=== PATIENT | female | born 1985 | race African-American/Black ===

== ENCOUNTER 2020-07-12 21:27 | Emergency (ER) | payer BC, OTHER ==
[2020-07-12 21:38] VITALS: BP 156/107; PULSE 96; TEMP 98.9; BMI 33.3
[2020-07-13] MEDS ORDERED: LABETALOL HCL 100 MG TABLET (FP) PO ONE (00:01)
[2020-07-13] MEDS ORDERED: LABETALOL HCL 100 MG TABLET (FP) ONE (00:10)
[2020-07-13 14:20] LABS: EPI CELLS >36 /uL (0-25.1); HYALINE CASTS 1 /uL (0-3.1); PH,URINE 6.5 (5.0-8.0); URINE APPEARANCE CLOUDY; URINE BACTERIA 1445 /uL (0-1359); URINE BILIRUBIN NEGATIVE (NEGATIVE); URINE COLOR YELLOW; URINE GLUCOSE (UA) NEGATIVE (NEGATIVE); URINE KETONE NEGATIVE (NEGATIVE); URINE LEUK ESTERASE 1+ (NEGATIVE); URINE NITRITE NEGATIVE (NEGATIVE); URINE PROTEIN 1+ (NEGATIVE); URINE RBC 15 /uL (0-23.9); URINE UROBILINOGEN 0.2 mg/dL (0.2-1.0); URINE WBC 149 /uL (0-25.8)
== END 2020-07-13 00:20 | disposition home or self-care (01) ==
LOC: JER 21:27
DX: R03.0 Elevated blood-pressure reading, without diagnosis of hypertension (principal)
CPT/HCPCS: 81003; 99283-25

== ENCOUNTER 2022-09-24 11:42 | Emergency (ER) | payer BC ==
[2022-09-24 11:57] VITALS: RESP 16; TEMP 99.2; BMI 31.5
[2022-09-24] MEDS ORDERED: LABETALOL HCL 100 MG TABLET (FP) PO ONE ×2 (12:42→13:41)
[2022-09-24] MEDS ORDERED: LABETALOL HCL 100 MG TABLET (FP) ONE ×2 (12:45→13:44)
[2022-09-24] MEDS ORDERED: IBUPROFEN 400 MG TABLET (FP) PO ONE ×2 (12:46→12:48)
[2022-09-24] MEDS ORDERED: amLODIPine BESYLATE 10 MG TABLET (FP) PO ONE (13:42)
[2022-09-24 13:43] VITALS: PULSE 92
[2022-09-24] MEDS ORDERED: amLODIPine BESYLATE 5 MG TABLET (FP) ONE (13:44)
[2022-09-24 14:43] VITALS: BP 178/124
== END 2022-09-24 15:12 | disposition home or self-care (01) ==
LOC: FER 11:42
DX: I10 Essential (primary) hypertension (principal); J02.0 Streptococcal pharyngitis; R52 Pain, unspecified
CPT/HCPCS: 99283-25